=== PATIENT | female | born 1950 | race Two or more races ===

== ENCOUNTER 2025-09-30 10:57 | Emergency (ER) | payer OTHER, MEDICAID ==
[~2025-09-30] VITALS: Ht 165.1 cm; Wt 58.4 kg
--- NOTE | 2025-09-30 11:33 | ECG ---
[facility] Test Date: 2025-09-30 Test Time: 11:11:36 Pat Name: AMARILYS PHELPS Department: ED Room: Gender: F Nursing Care Attendant: KATH : 1950 Requested By: ALFA RAUSCH Order Number: [id number] Reading MD: Kennedy Durant Measurements Intervals [place] Rate: 81 P: 14 [place]: 165 QRS: -60 QRSD: 100 T: 78 QT: 402 QTc: 467 Interpretive Statements Sinus rhythm Left anterior fascicular block Left ventricular hypertrophy Nonspecific T abnrm, anterolateral leads ST elevation, consider inferior injury Electronically Signed On 10-02-2025 10:31:43 PST by Kennedy Durant Please click the below link to view image of tracing.
--- NOTE | 2025-09-30 11:34 | ED.PDOC ---
HPI Comments 74y F who presents to the ED for chief complaint of high blood pressure. Pt presents with son who states pt was checking her daily blood pressure due to history of HTN and states it was elevated at 193/93 yesterday. Pt then took her prescribed losartan and states her blood pressure normalized. Pt today woke up and states she had headache and shortness of breath and called home health nurse and was told to come to urgent care for evaluation. Pt at urgent care was told to come to ED for further evaluation.Pt states she took her blood pressure medication today but still felt symptoms. Pt now in the ED, has noted BP of 178/107 with otherwise stable vitals. Pt son states pt recently moved in with son 1x week prior to help with pt care. Pt otherwise denies any other symptoms. 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 Hx Family History Family History: Reviewed,noncontributory to illness Social History Smoker: Non-Smoker Alcohol: Denies ETOH Use Drugs: Denies Drug Use Lives In: Home Constitutional: reports: weakness; denies: chills, diaphoresis, fatigue, fever, malaise, sweats, others EENTM: denies: blurred vision, double vision, ear bleeding, ear discharge, ear drainage, ear pain, ear ringing, eye pain, eye redness, hearing loss, mouth pain, mouth swelling, nasal discharge, nose bleeding, nose congestion, nose pain, photophobia, tearing, throat pain, throat swelling, voice changes, others Respiratory: denies: cough, hemoptysis, orthopnea, SOB at rest, shortness of breath, SOB with excertion, stridor, wheezing, others Cardiovascular: denies: chest pain, dizzy spells, diaphoresis, Dyspnea on exertion, edema, irregular heart beat, left arm pain, lightheadedness, palpitations, PND, syncope, others Gastrointestinal: denies: abdomen distended, abdominal pain, blood streaked bowels, constipated, diarrhea, dysphagia, difficulty swallowing, hematemesis, melena, nausea, poor appetite, poor fluid intake, rectal bleeding, rectal pain, vomiting, others Genitourinary: denies: abnormal vagina bleeding, burning, dyspareunia, dysuria, flank pain, frequency, hematuria, incontinence, pain, , vagina discharge, urgency, others Neurological: reports: headache; denies: dizziness, fainting, left sided numbness, left sided weakness, numbness, paresthesia, pre-existing deficit, right sided numbness, right sided weakness, seizure, speech problems, tingling, tremors, weakness, others Musculoskeletal: denies: back pain, gout, joint pain, joint swelling, muscle pain, muscle stiffness, neck pain, others Integumetry: denies: bruises, change in color, change in hair/nails, dryness, laceration, lesions, lumps, rash, wounds, others Allergic/Immunocompromised: denies: Difficulty Healing, Frequent Infections, Hives, Itching, others Hematologic/Lymphatic: denies: anemia, blood clots, easy bleeding, easy bruising, swollen glands, others Endocrine: denies: excessive hunger, excessive sweating, excessive thirst, excessive urination, flushing, intolerance to cold, intolerance to heat, unexplained weight gain, unexplained weight loss, others Psychiatric: denies: anxiety, bipolar disorder, depression, hopeless, panic disorder, schizophrenia, sleepless, suicidal, others All Other Systems: Reviewed and Negative Physical Exam General Appearance: Mild Distress HEENT: Normal ENT Inspection, PERRL/EOMI Neck: Full Range of Motion, Non-Tender, Normal, Normal Inspection Respiratory: Chest Non-Tender, Lungs Clear, No Accessory Muscle Use, No Respiratory Distress, Normal Breath Sounds Cardiovascular: No Edema, No JVD, No Murmur, No Gallop, Normal Peripheral Pulses, Regular Rate/Rhythm Breast Exam: Deferred Gastrointestinal: No Organomegaly, Non Tender, No Pulsatile Mass, Normal Bowel Sounds, Soft Genitalia: Deferred Pelvic: Deferred Rectal: Deferred Extremities: No calf tenderness, Normal capillary refill, Normal inspection, Normal range of motion, Non-tender, No pedal edema Neurologic: Alert, 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 Was a procedure done?: No CP Differential Dx Differential Diagnosis: Angina, Anxiety / Panic Attack Differential Diagnosis: HTN Essential, HTN Accelerated, HTN Encephalopathy, Medical NonCompliance X-Ray, Labs, Meds, VS Vital Signs Date Time Temp Pulse Resp B/P (MAP) Pulse Ox O2 Delivery O2 Flow Rate FiO2 09/30/25 16:08 52 16 98 Room Air 09/30/25 16:08 97.0 52 16 187/71 (109) 98 97.0 09/30/25 14:54 97.9 53 18 173/76 (108) 100 97.9 09/30/25 12:11 78 194/81 09/30/25 11:51 81 09/30/25 11:11 81 09/30/25 11:00 98.1 100 18 178/107 95 98.1 Lab Test 09/30/25 16:56 Range/Units White Blood Count 5.6 4.4-10.8 10^3/uL Red Blood Count 5.07 4.0-5.20 10^6/uL Hemoglobin 14.5 12.2-16.2 g/dL Hematocrit 44.0 36.0-46.0 % Mean Corpuscular Volume 86.8 80.0-100.0 fL Mean Corpuscular Hemoglobin 28.6 28.0-32.0 pg Mean Corpuscular Hemoglobin Concent 32.9 32.0-36.0 g/dL Red Cell Distribution Width 13.8 11.8-14.3 % Platelet Count 241 140-450 10^3/uL Mean Platelet Volume 6.3 L 6.9-10.8 fL Neutrophils (%) (Auto) 48.5 37.0-80.0 % Lymphocytes (%) (Auto) 42.2 10.0-50.0 % Monocytes (%) (Auto) 6.5 0.0-12.0 % Eosinophils (%) (Auto) 1.8 0.0-7.0 % Basophils (%) (Auto) 1.0 0.0-2.0 % Neutrophils # (Auto) 2.7 1.6-8.6 10 ^3/uL Lymphocytes # (Auto) 2.4 0.4-5.4 10 ^3/uL Monocytes # (Auto) 0.4 0-1.3 10 ^3/uL Eosinophils # (Auto) 0.1 0-0.8 10 ^3/uL Basophils # (Auto) 0.1 0-0.2 10 ^3/uL Nucleated Red Blood Cells 0.1 % Sodium Level 135 L 136-145 mmol/L Potassium Level 4.3 3.5-5.1 mmol/L Chloride Level 101 98-107 mmol/L Carbon Dioxide Level 26 20-31 mmol/L Anion Gap 8 5-15 Blood Urea Nitrogen 10 9-23 mg/dL Creatinine 1.12 H 0.550-1.02 mg/dL Glomerular Filtration Rate Calc 51 >90 mL/min BUN/Creatinine Ratio 8.9 L 10.0-20.0 Serum Glucose 135 H 74-106 mg/dL Calcium Level 10.1 8.7-10.4 mg/dL Magnesium Level 2.3 1.6-2.6 mg/dL Total Bilirubin 1.1 H 0.2-1.0 mg/dL Aspartate Amino Transferase (AST) 45 H 13-40 U/L Alanine Aminotransferase (ALT) 56 H 7-40 U/L Alkaline Phosphatase 83 46-116 U/L Total Protein 8.6 H 5.7-8.2 g/dL Albumin 5.0 H 3.2-4.8 g/dL Current Medications Medications (Trade) Dose Ordered Sig/Stanley Route Start Time Stop Time Status Last Admin Atenolol (Tenormin Tablet) 50 mg ONCE ONCE PO 09/30/25 11:30 09/30/25 11:31 DC 09/30/25 12:11 X-Ray, Labs, Meds, VS Comment 74-year-old female presented to the emergency department because of high blood pressure of 193/93 EKG shows normal sinus rhythm with a 81 Patient was observed and medicated Chest x-ray is normal CBC negative Serum. Negative Magnesium 2.3 Patient will be discharged room to follow up with her PCP Time of 1ST Reevaluation: 11:37 Reevaluation 1ST: Unchanged Time of 2ND Reevaluation: 15:23 Reevaluation 2ND: Improved Consultation: PCP Patient Education/Counseling: Diagnosis, Treatment, Prognosis, Need For Follow Up, Other (Son at bedside) Family Education/Counseling: Diagnosis, Treatment, Prognosis, Need For Follow Up SEPSIS Sepsis Screen Date sepsis recognized/suspect: Sep 30, 2025 Time Sepsis recognized/suspect: 1102 Recent Procedure: No On Antibiotic Therapy: No Respiratory Rate >20: No Heart Rate >90: Yes Temp<36 C (96.8 F) or >38.3 C: No SBP <90 or MAP <65 mmHG: No New Acute Mental Status Change: No Is the patient on CPAP, BIPAP,: No Physician Orders Urinalysis (09/30/25 16:43) Heplock Iv (09/30/25 16:43) Indigo Vat Tender Cloth (09/30/25 16:43) Blood Pressure (09/30/25 16:43) Pulse Oximetry (09/30/25 16:43) Chest Two Views Routine (09/30/25 16:43) Sodium Chloride 0.9% (09/30/25 16:45) Vital Signs Date Time Temp Pulse Resp B/P (MAP) Pulse Ox O2 Delivery O2 Flow Rate FiO2 09/30/25 16:08 52 16 98 Room Air 09/30/25 16:08 97.0 52 16 187/71 (109) 98 97.0 09/30/25 14:54 97.9 53 18 173/76 (108) 100 97.9 09/30/25 12:11 78 194/81 09/30/25 11:51 81 09/30/25 11:11 81 09/30/25 11:00 98.1 100 18 178/107 95 98.1 Laboratory Tests Test 09/30/25 16:56 White Blood Count 5.6 10^3/uL (4.4-10.8) Medications Medications Dose Ordered Sig/Stanley Route Start Time Stop Time Status Last Admin Dose Admin Atenolol 50 mg ONCE ONCE PO 09/30/25 11:30 09/30/25 11:31 DC 09/30/25 12:11 Departure 1 Departure Time of Disposition: 15:20 Impression: Primary Impression: Hypertension Additional Impression: Uncontrolled hypertension Disposition: 01 HOME / SELF CARE / HOMELESS Condition: Fair Additional Instructions: Take the medication on directed e-Prescriptions Naproxen (Naproxen) 375 Mg Tab 1 TAB PO BID for 10 Days, #20 TAB 5 Refills Prov: TEDDY DHILLON MD 09/30/25 Atenolol (Atenolol) 25 Mg Tab 1 TAB PO DAILY, #30 TAB 5 Refills Prov: TEDDY DHILLON MD 09/30/25 Discharged With: Self, Relative Critical Care Note Critical Care Time?: No Stability Stability form required: No Heart Score Heart Score: Heart Score Response (Comments) Value History Slightly Suspicious 0 EKG Normal 0 Age >65 2 Risk Factors 1 or 2 risk factors 1 Troponin N/A 0 Total 3 I personally scribed for TEDDY DHILLON MD ([email or web address]) on 09/30/25 at 11:34. Electronically submitted by Africa Duffy ([email or web address]). I personally scribed for TEDDY DHILLON MD ([email or web address]) on 09/30/25 at 11:51. El ectronically submitted by Africa Duffy ([email or web address]). TEDDY DHILLON MD Sep 30, 2025 11:34
[2025-09-30] MEDS: ATENOLOL 25 MG TAB PO ONE (12:11)
[2025-09-30] MEDS ORDERED: ATEN-60 PO (15:22)
[2025-09-30] MEDS ORDERED: SODIUM CHLORIDE 0.9% 1,000 ML IV ONE (16:45)
[2025-09-30 17:05] LABS: Hematocrit 44.0 % (36.0-46.0); Hemoglobin 14.5 g/dL (12.2-16.2); Mean Corpuscular Hemoglobin 28.6 pg (28.0-32.0); Mean Corpuscular Volume 86.8 fL (80.0-100.0); Nucleated Red Blood Cells % 0.1 %
[2025-09-30 17:21] LABS: Alkaline Phosphatase 83 U/L (46-116); Anion Gap 8 (5-15); Blood Urea Nitrogen 10 mg/dL (9-23); Calcium 10.1 mg/dL (8.7-10.4); Carbon Dioxide 26 mmol/L (20-31); Chloride 101 mmol/L (98-107); Magnesium 2.3 mg/dL (1.6-2.6); Potassium 4.3 mmol/L (3.5-5.1)
[2025-09-30 17:22] LABS: Alanine Aminotransferase 56 U/L (7-40); Albumin 5.0 g/dL (3.2-4.8); BUN/Creatinine Ratio 8.9 (10.0-20.0); Bilirubin, Total 1.1 mg/dL (0.2-1.0); Glucose 135 mg/dL (74-106); Sodium 135 mmol/L (136-145); Total Protein 8.6 g/dL (5.7-8.2)
--- NOTE | 2025-09-30 17:31 | DVH ---
CHEST RADIOGRAPH INDICATION: Uncontrolled hypertension TECHNIQUE: XY CHEST TWO VIEWS ROUTINE Comparison: None FINDINGS: The cardiac silhouette is unremarkable. The lungs demonstrate no pulmonary airspace consolidation. The pulmonary vasculature is unremarkable. There is no pleural effusion. There is no pneumothorax. Aortic tortuosity. [id number] degenerative disc disease of the thoracic spine. Aortic atherosclerotic calcification disease. IMPRESSION: No pulmonary airspace consolidation.
[2025-09-30] MEDS ORDERED: NAPR-957 PO (19:20)
[2025-09-30 19:31] VITALS: BP 173/73; TEMP 97.9
[2025-09-30 19:33] VITALS: PULSE 53; RESP 18; O2SAT 96
== END 2025-09-30 19:45 | disposition home or self-care (01) ==
LOC: ER 10:57
DX: I10 Essential (primary) hypertension (principal); F41.9 Anxiety disorder, unspecified; Z79.899 Other long term (current) drug therapy; Z88.8 Allergy status to other drugs, medicaments and biological substances
CPT/HCPCS: 36415; 71046; 80053; 83735; 85025; 93005